=== PATIENT | female | born 1970 | race American Indian/Alaskan Native ===

== ENCOUNTER 2018-06-01 08:09 | Emergency (ER) | payer OTHER ==
[2018-06-01 08:30] VITALS: BP 101/70
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
--- NOTE | 2018-06-01 09:19 | XRay Report ---
Left knee: Trauma, pain. AP and lateral views are included. The bones appear well mineralized and aligned. No fracture. The joint spaces are preserved and the articular margins are smooth. A small suprapatellar effusion is identified. The soft tissues are otherwise unremarkable. Impression: Small joint effusion.
[2018-06-01] MEDS ORDERED: IBUPROFEN PO ONE (09:24)
== END 2018-06-01 10:07 | disposition home or self-care (01) ==
LOC: ED 08:09
DX: M25.462 Effusion, left knee (principal); V69.9XXA Occupant (driver) (passenger) of heavy transport vehicle injured in unspecified traffic accident, initial encounter; Y93.89 Activity, other specified; Y92.89 Other specified places as the place of occurrence of the external cause; Y99.8 Other external cause status

== ENCOUNTER 2019-12-20 09:47 | Emergency (ER) | payer OTHER ==
[2019-12-20 09:55] VITALS: BP 117/84
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
[2019-12-20] MEDS ORDERED: IBUPROFEN 600 MG TAB PO ONE (10:35)
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
== END 2019-12-20 11:42 | disposition home or self-care (01) ==
LOC: ED 09:47
DX: S20.219A Contusion of unspecified front wall of thorax, initial encounter (principal); S80.11XA Contusion of right lower leg, initial encounter; S60.211A Contusion of right wrist, initial encounter; Z79.899 Other long term (current) drug therapy; V49.49XA Driver injured in collision with other motor vehicles in traffic accident, initial encounter; Y93.89 Activity, other specified; Y92.488 Other paved roadways as the place of occurrence of the external cause; Y99.8 Other external cause status
CPT/HCPCS: 99283